=== PATIENT | female | born 1985 | race Caucasian/White ===

== ENCOUNTER 2016-11-03 16:08 | Emergency (ER) | payer OTHER ==
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
== END 2016-11-03 17:40 | disposition disaster alternative care site (69) ==
LOC: GACC 16:08
DX: M54.2 Cervicalgia (principal); F41.9 Anxiety disorder, unspecified; D64.9 Anemia, unspecified; F32.9 Major depressive disorder, single episode, unspecified; F17.210 Nicotine dependence, cigarettes, uncomplicated; Z79.899 Other long term (current) drug therapy; Z98.84 Bariatric surgery status; V49.40XA Driver injured in collision with unspecified motor vehicles in traffic accident, initial encounter; Y92.410 Unspecified street and highway as the place of occurrence of the external cause

== ENCOUNTER → 2016-11-03 | Emergency (ER) | payer OTHER | END | disposition disaster alternative care site (69) | LOC: GAMB 15:11 | DX: M54.2 Cervicalgia (principal); T14.90 Injury, unspecified; R51 Headache; V89.2XXA Person injured in unspecified motor-vehicle accident, traffic, initial encounter ==